=== PATIENT | male | born 1970 | race Caucasian/White ===

== ENCOUNTER → 2024-10-30 | Outpatient (CLI) | payer OTHER ==
--- NOTE | 2024-10-30 16:21 | CT ---
EXAMINATION TYPE: CT chest wo con CT DLP: 421 mGycm, Automated exposure control for dose reduction was used. DATE OF EXAM: 10/30/2024 4:08 PM COMPARISON: None CLINICAL INDICATION:Male, 54 years old with history of S29.011A STRAIN OF MUSCLE AND TENDON OF FRONT WALL; PHH, Pain in chest, strained muscle/tendon. TECHNIQUE: Multiple axial images were obtained through the chest without IV contrast. Lack of IV or o ral contrast limits evaluation of solid and hollow organ viscera. . Coronal and sagittal reformats re viewed. FINDINGS: LUNGS/ PLEURA: No pleural effusion, pneumothorax, focal consolidation. Minimal dependent bilateral lo wer lobe subsegmental atelectasis. Mild biapical paraseptal emphysematous changes. There are 2 adjace nt anterior right mid lung pulmonary nodules measuring 4 mm (series 4, image 32 and 31). Medial right middle lobe 5 mm pulmonary nodule (series 4, image 36). AIRWAY: Patent and unremarkable.. HEART: Size within normal limits. . No pericardial effusion. Mild coronary artery calcifications pres ent. MEDIASTINUM: No gross evidence of adenopathy. VASCULATURE: No aortic aneurysm. Minimal atherosclerotic calcification of the aorta and its branches . MUSCULOSKELETAL: No acute osseous abnormalities. No fluid collections identified. No asymmetry of the muscles identified. SOFT TISSUES/LYMPH NODES: Minimal bilateral gynecomastia. LOWER NECK: No significant findings. UPPER ABDOMEN: No significant findings. IMPRESSION: 1. No evidence for acute process within limitations of a noncontrast CT. 2. Few few right midlung pulmonary nodules measuring less than 6 mm. Incidentally detected nodules of this size are generally considered benign in individuals without concomitant risk factors such as sm oking history or other risk factors for malignancy. Follow up imaging is generally not performed, in accordance with Fleischner Society guidelines. In high-risk patients, a [address] thorax can be considered. [facility], , 10/30/2024 4:19 PM
== END | disposition home or self-care (01) ==
LOC: RADCTMAIN 15:40
PROVIDERS: ATTEND Physician Assistant
DX: S29.011A Strain of muscle and tendon of front wall of thorax, initial encounter (principal); R91.8 Other nonspecific abnormal finding of lung field; X58.XXXA Exposure to other specified factors, initial encounter
CPT/HCPCS: 71250